=== PATIENT | male | born 1985 | race African-American/Black ===

== ENCOUNTER 2018-11-08 22:24 | Emergency (ER) | payer MEDICAID ==
[~2018-11-08] VITALS: Ht 182.9 cm; Wt 78.0 kg
[2018-11-09] MEDS ORDERED: KETOROLAC 30MG/ML VIAL IV ONE (00:15)
[2018-11-09 00:59] LABS: HEMATOCRIT 41.7 % (42.0-52.0); HEMOGLOBIN 14.1 g/dL (14.0-18.0); MEAN CORPUSCULAR HEMOGLOBIN 32.9 pg (28.0-32.0); MEAN CORPUSCULAR VOLUME 97.2 fL (80.0-94.0); PLATELET 255 x1000/uL (130-400); RED BLOOD CELL COUNT 4.29 mill/uL (4.7-6.1); RED CELL DISTRIBUTION WIDTH 13.6 % (11.6-14.6)
[2018-11-09] MEDS ORDERED: KETOROLAC 60MG/2ML VIAL IM ONE (01:00)
[2018-11-09 01:02] LABS: CLARITY URINE CLEAR (CLEAR); COLOR URINE YELLOW (YELLOW); KETONES URINE TRACE (NEGATIVE); LEUKOCYTE ESTERASE URINE 1+ (NEGATIVE); NITRITE URINE NEGATIVE (NEGATIVE); OCCULT BLOOD URINE 1+ (NEGATIVE); PROTEIN URINE TRACE (NEGATIVE)
[2018-11-09 01:03] LABS: CHLORIDE 103 mEq/L (98-107)
[2018-11-09] MEDS ORDERED: DOXYCYCLINE HYCLATE 100MG CAPSULE PO NR (01:45)
[2018-11-09 02:25] VITALS: BP 127/69
== END 2018-11-09 03:09 | disposition home or self-care (01) ==
LOC: ER 22:24
DX: N45.1 Epididymitis (principal); G43.909 Migraine, unspecified, not intractable, without status migrainosus; F12.10 Cannabis abuse, uncomplicated; F14.10 Cocaine abuse, uncomplicated; F17.210 Nicotine dependence, cigarettes, uncomplicated
CPT/HCPCS: 36415; 76870; 80053; 81003; 85027; 87086; 93976; 96372; 99284; J1885

== ENCOUNTER 2024-03-16 15:44 | Emergency (ER) | payer MEDICAID ==
[~2024-03-16] VITALS: Ht 180.3 cm; Wt 84.0 kg
[2024-03-16 15:48] VITALS: TEMP 96.8; O2SAT 98
[2024-03-16] MEDS ORDERED: DIPHENHYDRAMINE 50MG CAPSULE PO ONE (16:15)
[2024-03-16] MEDS ORDERED: DIPH50CA41 MT (16:20)
[2024-03-16] MEDS: DIPHENHYDRAMINE 25MG CAPSULE PO NR (16:50)
[2024-03-16] MEDS: DEXAMETHASONE 10 MG/ML VIAL IM ONE (16:50)
[2024-03-16 18:00] VITALS: BP 135/68; PULSE 100; RESP 17; O2SAT 100
== END 2024-03-16 18:05 | disposition home or self-care (01) ==
LOC: ER 15:44
DX: L50.0 Allergic urticaria (principal); F14.10 Cocaine abuse, uncomplicated; F12.10 Cannabis abuse, uncomplicated
CPT/HCPCS: 96372; 99283; Q0163; J1100; Z7610

== ENCOUNTER 2024-05-07 12:58 | Emergency (ER) | payer MEDICAID ==
[~2024-05-07] VITALS: Ht 180.3 cm; Wt 81.0 kg
[~2024-05-07 12:58] MED LIST: DIPH50CA41 MT
[2024-05-07 13:02] VITALS: BP 156/88; PULSE 92; RESP 16; TEMP 98.8; O2SAT 99
[2024-05-07 15:43] LABS: CLARITY URINE CLEAR (CLEAR); COLOR URINE YELLOW (YELLOW); GLUCOSE URINE NEGATIVE (NEGATIVE); KETONES URINE NEGATIVE (NEGATIVE); LEUKOCYTE ESTERASE URINE NEGATIVE (NEGATIVE); NITRITE URINE NEGATIVE (NEGATIVE); OCCULT BLOOD URINE NEGATIVE (NEGATIVE); PROTEIN URINE TRACE (NEGATIVE); SPECIFIC GRAVITY URINE 1.016 (1.005-1.030); UROBILINOGEN URINE 0.2 E.U./dL (0.2-1.0)
[2024-05-07 16:09] LABS: BACTERIA URINE NONE SEEN; RBC URINE NONE SEEN /hpf (0-2); SQUAMOUS EPITHELIAL CELL URINE NONE SEEN /lpf (RARE/1+); WBC URINE NONE SEEN /hpf (0-2)
[2024-05-07 18:09] LABS: CHLORIDE 101 mEq/L (98-107); SODIUM 137 mEq/L (136-145)
[2024-05-07 18:10] LABS: CALCIUM 10.1 mg/dL (8.7-10.4); CARBON DIOXIDE 25 mEq/L (21-32)
[2024-05-07 18:15] LABS: CREATININE 0.9 mg/dL (0.6-1.3); GLUCOSE 108 mg/dL (70-105); UREA NITROGEN BLOOD 11 mg/dL (9-23)
[2024-05-07 18:16] LABS: ALANINE AMINOTRANSFERASE 50 IU/L (10-49)
[2024-05-07 18:17] LABS: ALBUMIN 4.9 g/dL (3.2-4.8); ASPARTATE AMINOTRANSFERASE 45 IU/L (<34); BILIRUBIN DIRECT 0.2 mg/dL (<=3.0); BILIRUBIN TOTAL 0.7 mg/dL (0.1-1.0); CREATINE KINASE 171 IU/L (46-171); PROTEIN TOTAL 8.2 g/dL (6.0-8.3)
[2024-05-10 04:07] LABS: CHLAMYDIA TRACHOMATIS NAA Negative (Negative); NEISSERIA GONORRHOEAE NAA Negative (Negative)
== END 2024-05-07 19:08 | disposition home or self-care (01) ==
LOC: ER 12:58
DX: R82.90 Unspecified abnormal findings in urine (principal); F12.90 Cannabis use, unspecified, uncomplicated; F14.90 Cocaine use, unspecified, uncomplicated; Z11.3 Encounter for screening for infections with a predominantly sexual mode of transmission
CPT/HCPCS: 36415; 80048; 80076; 81003; 82550; 87491; 87591; 99283